=== PATIENT | male | born 1960 | race American Indian/Alaskan Native ===

== ENCOUNTER 2018-04-02 10:05 | Emergency (ER) | payer BC ==
[2018-04-02 10:30] VITALS: BP 166/101
[2018-04-02] MEDS ORDERED: DECADRON IM ONE (11:38)
--- NOTE | 2018-04-02 11:38 | Emergency Department Report ---
HPI - General Chief Complaint: Allergic Reaction Time Seen by Provider: 04/02/18 11:26 ED Past Medical Hx - Past Medical History Previous Medical History?: Yes Hx Hypertension: Yes - Surgical History Past Surgical History?: No - Social History Smoking Status: Never Smoker Substance Use Type: Alcohol ED Review of Systems ROS: Stated complaint: ALLERGIC REACTION TO MEDS Other details as noted in HPI Physical Exam - Physical Exam Vital Signs: Vital Signs 04/02/18 10:25 Temperature 98.6 F Pulse Rate 78 Respiratory 20 Rate Blood Pressure 166/101 O2 Sat by Pulse 98 Oximetry ED Course Vital Signs 04/02/18 10:25 Temperature 98.6 F Pulse Rate 78 Respiratory 20 Rate Blood Pressure 166/101 O2 Sat by Pulse 98 Oximetry Critical care attestation.: If time is entered above; I have spent that time in minutes in the direct care of this critically ill patient, excluding procedure time. ED Disposition Condition: Stable Referrals: PRIMARY CARE [Primary Care Provider] - 3-5 Days
--- NOTE | 2018-04-02 11:46 | Emergency Department Report ---
ED Rash HPI - HPI Chief Complaint: Allergic Reaction Stated Complaint: ALLERGIC REACTION TO MEDS Time Seen by Provider: 04/02/18 11:26 Duration: 2 months ago February 07 Location: Head, Abdomen, Upper Extremities Suspected Cause: Medication (lisinopril atenolol) Rash Symptoms: Yes Peeling, No Itching, No Facial Swelling, No Tongue/Oral Swelling, No Breathing Difficulties, No Choking Sensation, No Wheezing/Dyspnea, No Blistering, No Fever, No Malaise, No Myalgias Severity: moderate Other History: Mr. Can is a very pleasant healthy 57-year-old male who presents with skin rash since January. On February 07 he's noticed swelling in his extremities. The physician felt that the lisinopril was the cause of his rash. Prednisone completely resolve the rash. However after starting new medications including atenolol procardiaa amlodipine, the rash returned. He was seen by admission discharge rn twice. Through skin biopsies were obtained. 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 Prednisone resolved the rash. However after prednisone course was completed, the rash returned with a "vengeance", rash mostly involved bilateral hand and forearms. Now the rash is involving his forehead and upper torso. Rashes red scaly irritating. No involvement of lips or mouth. No involvement of the lower extremities. ED Review of Systems ROS: Stated complaint: ALLERGIC REACTION TO MEDS Other details as noted in HPI Constitutional: denies: fever, malaise Respiratory: denies: cough Cardiovascular: denies: chest pain Gastrointestinal: denies: abdominal pain Skin: rash, lesions, change in color ED Past Medical Hx - Past Medical History Previous Medical History?: Yes Hx Hypertension: Yes - Surgical History Past Surgical History?: No - Social History Smoking Status: Light Tobacco Smoker Substance Use Type: Alcohol - Medications Home Medications: Home Medications Medication Instructions Recorded Confirmed Last Taken Type predniSONE [Deltasone] 10 mg PO .TAPER 12 Days #48 tab 04/02/18 Unknown Rx Rash Exam - Exam General: Vital signs noted. No distress. Alert and acting appropriately. HEENT: No Periorbital Edema, No Conjuctival Injection, No Chemosis, No Perioral Edema, No Tongue Edema, No Uvular Edema, No Compromised Airway, No Drooling Lungs: Yes Good Air Exchange, No Wheezes, No Ronchi, No Stridor, No Cough, No Labored Respirations, No Retractions, No Use of Accessory Muscles Heart: Yes Regular, No Murmur Skin: Yes Excoriations, Yes Tenderness, Yes Erythema, Yes Encrustations, No Urticarial Rash, No Maculopapular Rash, No Morbilliform rash, No Bulla(e), No Other (On upper extremities and the majority of abdomen, patient has erythematous skin with overlying large oily flakes thick plaques with involvement of the palms) ED Course Vital Signs 04/02/18 10:25 Temperature 98.6 F Pulse Rate 78 Respiratory 20 Rate Blood Pressure 166/101 O2 Sat by Pulse 98 Oximetry ED Medical Decision Making - Medical Decision Making According to patient's admission discharge rn's opinion, he has a psoriatic reaction to medications including atenolol and lisinopril. Presumptive psoriatic drug rash. Will prescribed prednisone. He received IM Decadron in the ED. are rash is responsive to steroids. He received prescription for prednisone 12 day taper. I also recommended evaluation by signals collector/analyst after completing course of therapy with admission discharge rn. Critical care attestation.: If time is entered above; I have spent that time in minutes in the direct care of this critically ill patient, excluding procedure time. ED Disposition Clinical Impression: Rash, drug, Psoriasis-like skin disease Disposition: [id number] TO HOME OR SELFCARE Is pt being admited?: No Does the pt Need Aspirin: No Condition: Stable Instructions: Acute Rash (ED), Psoriasis (ED) Additional Instructions: Please see your personal admission discharge rn as soon as you can. Prescriptions: predniSONE [Deltasone] 10 mg PO .TAPER 12 Days #48 tab Referrals: PRIMARY CARE, [Primary Care Provider] - [facility]
== END 2018-04-02 11:55 | disposition home or self-care (01) ==
LOC: ED 10:05
DX: L40.9 Psoriasis, unspecified (principal); T44.7X5A Adverse effect of beta-adrenoreceptor antagonists, initial encounter; T46.4X5A Adverse effect of angiotensin-converting-enzyme inhibitors, initial encounter; I10 Essential (primary) hypertension; F17.200 Nicotine dependence, unspecified, uncomplicated; Z88.8 Allergy status to other drugs, medicaments and biological substances; Y92.89 Other specified places as the place of occurrence of the external cause
CPT/HCPCS: 96372; 99281; J1100